=== PATIENT | female | born 1945 | race Caucasian/White ===

== ENCOUNTER 2018-07-30 13:34 | Inpatient (IN) | payer OTHER ==
[~2018-07-30] VITALS: Ht 157.5 cm; Wt 65.8 kg
[2018-07-30 13:39] VITALS: BP_SYST 151
[2018-07-30] MEDS ORDERED: NACL 0.9% 1,000 ML IV ONE (13:51)
[2018-07-30] MEDS ORDERED: ONDANSETRON HCL 4 MG/2 ML VIAL IVP ONE (14:00)
[2018-07-30 14:42] LABS: ANION GAP 6 (5-15); CALCIUM 10.4 mg/dL (8.4-11.0); CHLORIDE 95 mmol/L (98-107); CREATININE 0.88 mg/dL (0.55-1.30); GLUCOSE 204 mg/dL (70-99); POTASSIUM 4.5 mmol/L (3.5-5.1); SODIUM SERUM 133 mmol/L (136-145); UREA NITROGEN, BLOOD 17 mg/dL (8-21)
[2018-07-30 14:45] LABS: PROTHROMBIN TIME 10.4 SECS (9.5-12.5)
[2018-07-30 14:47] LABS: BILIRUBIN,URINE NEGATIVE (NEGATIVE); BLOOD, URINE 2+ (NEGATIVE); CLARITY/URINE CLEAR (CLEAR); COLOR,URINE YELLOW (YELLOW); GLUCOSE,URINE NEGATIVE (NEGATIVE); KETONES,URINE NEGATIVE (NEGATIVE); LEUKOCYTE ESTERASE ,URINE NEGATIVE (NEGATIVE); NITRITE, URINE NEGATIVE (NEGATIVE); PROTEIN URINE 1+ (NEGATIVE); UROBILINOGEN,URINE 0.2 (0.2-1.0)
[2018-07-30 14:48] LABS: ALANINE AMINOTRANSFERASE 60 U/L (12-78); ALBUMIN 3.2 g/dL (3.4-4.8); AMYLASE 56 U/L (0-100); ASPARTATE AMINOTRANSFERASE 22 U/L (10-37); LIPASE 208 U/L (73-393); TOTAL BILIRUBIN 0.5 mg/dL (0.0-1.0)
[2018-07-30 14:53] LABS: BACTERIA,URINE FEW /HPF (None Seen); WBC,URINE 0-3 /HPF (0-3)
[2018-07-30 14:53] LABS: BASOPHILS # (AUTO) 0.1 K/uL (0.0-0.2); BASOPHILS % (AUTO) 0.4 % (0.0-2.0); EOSINOPHILS # (AUTO) 0.3 K/uL (0.0-0.4); EOSINOPHILS % (AUTO) 2.3 % (0.0-4.0); HEMATOCRIT 50.6 % (36-48); HEMOGLOBIN 16.6 g/dL (12.0-16.0); LYMPHOCYTES # (AUTO) 2.5 K/uL (1.0-5.5); LYMPHOCYTES % (AUTO) 18.5 % (20.5-51.5); MEAN CORPUSCULAR HEMOGLOBIN 29 pg (27-31); MEAN CORPUSCULAR HGB CONC 33 % (32-36); MEAN CORPUSCULAR VOLUME 89 fL (79.0-98.0); MONOCYTES # (AUTO) 0.9 K/uL (0.0-1.0); MONOCYTES % (AUTO) 6.6 % (1.7-9.3); NEUTROPHILS # (AUTO) 9.7 K/uL (1.8-7.7); NEUTROPHILS % (AUTO) 72.2 % (40.0-70.0); PLATELET COUNT (AUTO) 563 K/uL (130-430); RED BLOOD CELL COUNT(AUTO) 5.67 MIL/uL (4.2-6.2); RED CELL DISTRIBUTION WIDTH 14.3 % (9.0-15.0); WHITE BLOOD COUNT (AUTO) 13.5 K/uL (4.8-10.8)
[2018-07-30] MEDS ORDERED: IOHEXOL 100 ML IV ONE (15:57)
[2018-07-30] MEDS ORDERED: KCL 20 mEq in D5/0.45NS 1000mL 1,000 ML IV SCH (18:45)
[2018-07-30] MEDS ORDERED: ESOM40CA PO (18:50)
[2018-07-30] MEDS ORDERED: METF1000 PO (18:50)
[2018-07-30] MEDS ORDERED: DULO20CA PO (18:50)
[2018-07-30] MEDS ORDERED: NEU300 PO (18:50)
[2018-07-30] MEDS ORDERED: ASPI-862 PO (18:58)
[2018-07-30] MEDS ORDERED: NOR10 PO (18:58)
[2018-07-30] MEDS ORDERED: LACT10SO7 PO (18:58)
[2018-07-30] MEDS ORDERED: ASCO500T20 PO (18:58)
[2018-07-30] MEDS ORDERED: POTA10TA15 PO (18:58)
[2018-07-30] MEDS ORDERED: FOLI-43 PO (18:58)
[2018-07-30] MEDS ORDERED: CALC117719 PO (18:58)
[2018-07-30] MEDS ORDERED: FURO-150 PO (18:58)
[2018-07-30] MEDS ORDERED: BENA40TA65 PO (18:58)
[2018-07-30] MEDS ORDERED: GLIM1TAB PO (18:58)
[2018-07-30] MEDS ORDERED: MULT-976 PO (18:58)
[2018-07-30] MEDS ORDERED: LIP40 PO (18:58)
[2018-07-30] MEDS ORDERED: BEN50 PO (18:58)
[2018-07-30] MEDS ORDERED: METO50TA7 PO (18:58)
[2018-07-30 19:09] VITALS: BP_SYST 138
[2018-07-30] MEDS: KCL 20 mEq in 0.45% NS 1000 mL 1,000 ML IV SCH (20:10)
[2018-07-30] MEDS: DULoxetine HCL 20 MG CAPSULE.DR PO SCH (21:00)
[2018-07-30] MEDS: GABAPENTIN 300 MG CAPSULE PO SCH (22:03)
[2018-07-30] MEDS: METOPROLOL SUCCINATE 50 MG TAB.SR.24H (TOPROL XL) PO SCH (22:04)
[2018-07-30] MEDS: ATORVASTATIN 20 MG TABLET PO SCH (22:04)
[2018-07-30] MEDS: INSULIN REGULAR, HUMAN 100 UNITS/ML, 10 ML VIAL (novoLIN R) SUBCUT PRN (22:10)
[2018-07-31 00:34] VITALS: BP_SYST 141
[2018-07-31] MEDS: INSULIN REGULAR, HUMAN 100 UNITS/ML, 10 ML VIAL (novoLIN R) SUBCUT PRN ×2 (06:00→11:33)
[2018-07-31] MEDS: MULTIVITAMINS TAB 1 TABLET PO SCH (08:29)
[2018-07-31] MEDS: ASCORBIC ACID 500 MG TABLET PO SCH (08:29)
[2018-07-31] MEDS: DULoxetine HCL 20 MG CAPSULE.DR PO SCH ×2 (08:29→20:42)
[2018-07-31] MEDS: GABAPENTIN 300 MG CAPSULE PO SCH ×2 (08:29→20:43)
[2018-07-31] MEDS: metFORMIN HCL 500 MG TABLET PO SCH ×2 (08:30→18:07)
[2018-07-31] MEDS: BENAZEPRIL HCL 20 MG TABLET (LOTENSIN) PO SCH (08:30)
[2018-07-31] MEDS: POTASSIUM CHLORIDE 10 MEQ TAB.PRT.SR PO SCH (08:30)
[2018-07-31] MEDS: ASPIRIN 325 MG TABLET (ECOTRIN) PO SCH (08:30)
[2018-07-31] MEDS: FOLIC ACID 1 MG TABLET PO SCH (08:31)
[2018-07-31] MEDS: amLODIPine BESYLATE 10 MG TABLET PO SCH (08:31)
[2018-07-31] MEDS: GLIMEPIRIDE 2 MG TABLET PO SCH (08:31)
[2018-07-31] MEDS: FUROSEMIDE 20 MG TABLET PO SCH (08:32)
[2018-07-31 08:34] VITALS: BP_SYST 108
[2018-07-31] MEDS: KCL 20 mEq in 0.45% NS 1000 mL 1,000 ML IV SCH ×2 (08:34→20:46)
[2018-07-31] MEDS: METOPROLOL SUCCINATE 50 MG TAB.SR.24H (TOPROL XL) PO SCH ×2 (08:34→20:43)
[2018-07-31 12:37] VITALS: BP_SYST 135
[2018-07-31 14:30] VITALS: BP_SYST 131
[2018-07-31 20:00] VITALS: BP_SYST 112
[2018-07-31] MEDS: ATORVASTATIN 20 MG TABLET PO SCH (20:43)
[2018-08-01 00:10] VITALS: BP_SYST 111
[2018-08-01] MEDS: DIPHENHYDRAMINE HCL 50 MG CAPSULE PO PRN ×2 (00:11→11:37)
[2018-08-01] MEDS: KCL 20 mEq in 0.45% NS 1000 mL 1,000 ML IV SCH (06:48)
[2018-08-01 08:00] VITALS: BP_SYST 116
[2018-08-01] MEDS: ASPIRIN 325 MG TABLET (ECOTRIN) PO SCH (08:44)
[2018-08-01] MEDS: DULoxetine HCL 20 MG CAPSULE.DR PO SCH ×2 (08:44→20:50)
[2018-08-01] MEDS: metFORMIN HCL 500 MG TABLET PO SCH ×2 (08:44→17:11)
[2018-08-01] MEDS: GABAPENTIN 300 MG CAPSULE PO SCH ×2 (08:45→20:50)
[2018-08-01] MEDS: MULTIVITAMINS TAB 1 TABLET PO SCH (08:45)
[2018-08-01] MEDS: POTASSIUM CHLORIDE 10 MEQ TAB.PRT.SR PO SCH (08:45)
[2018-08-01] MEDS: FUROSEMIDE 20 MG TABLET PO SCH (08:46)
[2018-08-01] MEDS: BENAZEPRIL HCL 20 MG TABLET (LOTENSIN) PO SCH (08:46)
[2018-08-01] MEDS: ASCORBIC ACID 500 MG TABLET PO SCH (08:46)
[2018-08-01] MEDS: FOLIC ACID 1 MG TABLET PO SCH (08:47)
[2018-08-01] MEDS: GLIMEPIRIDE 2 MG TABLET PO SCH (08:47)
[2018-08-01] MEDS: METOPROLOL SUCCINATE 50 MG TAB.SR.24H (TOPROL XL) PO SCH ×2 (08:48→20:50)
[2018-08-01] MEDS: amLODIPine BESYLATE 10 MG TABLET PO SCH (08:48)
[2018-08-01] MEDS: INSULIN REGULAR, HUMAN 100 UNITS/ML, 10 ML VIAL (novoLIN R) SUBCUT PRN (11:33)
[2018-08-01 11:36] VITALS: BP_SYST 128
[2018-08-01 15:30] VITALS: BP_SYST 115
[2018-08-01 19:15] VITALS: BP_SYST 105
[2018-08-01] MEDS: ATORVASTATIN 20 MG TABLET PO SCH (20:50)
[2018-08-02 00:33] VITALS: BP_SYST 126
[2018-08-02] MEDS: KCL 20 mEq in 0.45% NS 1000 mL 1,000 ML IV SCH ×2 (00:39→14:09)
[2018-08-02 08:00] VITALS: BP_SYST 125
[2018-08-02 08:33] LABS: RED BLOOD CELL COUNT(AUTO) 4.86 MIL/uL (4.2-6.2); WHITE BLOOD COUNT (AUTO) 10.5 K/uL (4.8-10.8)
[2018-08-02 08:34] LABS: EOSINOPHILS % (AUTO) 5.6 % (0.0-4.0); HEMATOCRIT 44.1 % (36-48); HEMOGLOBIN 14.6 g/dL (12.0-16.0); LYMPHOCYTES % (AUTO) 16.8 % (20.5-51.5); MEAN CORPUSCULAR HEMOGLOBIN 30 pg (27-31); MEAN CORPUSCULAR HGB CONC 33 % (32-36); MEAN CORPUSCULAR VOLUME 90 fL (79.0-98.0); MONOCYTES % (AUTO) 8.5 % (1.7-9.3); NEUTROPHILS % (AUTO) 68.2 % (40.0-70.0); PLATELET COUNT (AUTO) 448 K/uL (130-430); RED CELL DISTRIBUTION WIDTH 14.9 % (9.0-15.0)
[2018-08-02 08:35] LABS: BASOPHILS # (AUTO) 0.1 K/uL (0.0-0.2); BASOPHILS % (AUTO) 0.9 % (0.0-2.0); EOSINOPHILS # (AUTO) 0.6 K/uL (0.0-0.4); LYMPHOCYTES # (AUTO) 1.8 K/uL (1.0-5.5); MONOCYTES # (AUTO) 0.9 K/uL (0.0-1.0); NEUTROPHILS # (AUTO) 7.1 K/uL (1.8-7.7)
[2018-08-02 08:53] LABS: ALANINE AMINOTRANSFERASE 46 U/L (12-78); ALBUMIN 2.6 g/dL (3.4-4.8); ANION GAP 10 (5-15); ASPARTATE AMINOTRANSFERASE 26 U/L (10-37); CALCIUM 9.1 mg/dL (8.4-11.0); CHLORIDE 102 mmol/L (98-107); CREATININE 0.77 mg/dL (0.55-1.30); GLUCOSE 144 mg/dL (70-99); POTASSIUM 4.4 mmol/L (3.5-5.1); SODIUM SERUM 136 mmol/L (136-145); TOTAL BILIRUBIN 0.5 mg/dL (0.0-1.0); UREA NITROGEN, BLOOD 18 mg/dL (8-21)
[2018-08-02] MEDS: BENAZEPRIL HCL 20 MG TABLET (LOTENSIN) PO SCH (09:18)
[2018-08-02] MEDS: GABAPENTIN 300 MG CAPSULE PO SCH ×2 (09:18→20:37)
[2018-08-02] MEDS: metFORMIN HCL 500 MG TABLET PO SCH ×2 (09:18→17:29)
[2018-08-02] MEDS: METOPROLOL SUCCINATE 50 MG TAB.SR.24H (TOPROL XL) PO SCH ×2 (09:19→20:46)
[2018-08-02] MEDS: GLIMEPIRIDE 2 MG TABLET PO SCH (09:19)
[2018-08-02] MEDS: amLODIPine BESYLATE 10 MG TABLET PO SCH (09:20)
[2018-08-02] MEDS: ASPIRIN 325 MG TABLET (ECOTRIN) PO SCH (09:20)
[2018-08-02] MEDS: POTASSIUM CHLORIDE 10 MEQ TAB.PRT.SR PO SCH (09:21)
[2018-08-02] MEDS: MULTIVITAMINS TAB 1 TABLET PO SCH (09:21)
[2018-08-02] MEDS: ASCORBIC ACID 500 MG TABLET PO SCH (09:21)
[2018-08-02] MEDS: FOLIC ACID 1 MG TABLET PO SCH (09:21)
[2018-08-02] MEDS: FUROSEMIDE 20 MG TABLET PO SCH (09:22)
[2018-08-02] MEDS: DULoxetine HCL 20 MG CAPSULE.DR PO SCH ×2 (09:22→20:37)
[2018-08-02 11:29] VITALS: BP_SYST 150
[2018-08-02] MEDS: INSULIN REGULAR, HUMAN 100 UNITS/ML, 10 ML VIAL (novoLIN R) SUBCUT PRN (11:55)
[2018-08-02 15:18] VITALS: BP_SYST 131
[2018-08-02] MEDS: ACETAMINOPHEN 325 MG TABLET PO PRN (16:23)
[2018-08-02] MEDS: DIPHENHYDRAMINE HCL 50 MG CAPSULE PO PRN (18:24)
[2018-08-02 19:50] VITALS: BP_SYST 133
[2018-08-02] MEDS: FAMOTIDINE 20 MG TABLET PO SCH (20:37)
[2018-08-02] MEDS: ATORVASTATIN 20 MG TABLET PO SCH (20:38)
[2018-08-02] MEDS: ONDANSETRON HCL 4 MG/2 ML VIAL IVP PRN (20:53)
[2018-08-03] VITALS: BP_SYST 125
[2018-08-03] MEDS: KCL 20 mEq in 0.45% NS 1000 mL 1,000 ML IV SCH ×2 (03:10→17:50)
[2018-08-03] MEDS: ONDANSETRON HCL 4 MG/2 ML VIAL IVP PRN ×2 (05:54→17:57)
[2018-08-03 08:00] VITALS: BP_SYST 126
[2018-08-03] MEDS: BENAZEPRIL HCL 20 MG TABLET (LOTENSIN) PO SCH (08:15)
[2018-08-03] MEDS: MULTIVITAMINS TAB 1 TABLET PO SCH (08:15)
[2018-08-03] MEDS: amLODIPine BESYLATE 10 MG TABLET PO SCH (08:15)
[2018-08-03] MEDS: DIPHENHYDRAMINE HCL 50 MG CAPSULE PO PRN (08:15)
[2018-08-03] MEDS: FAMOTIDINE 20 MG TABLET PO SCH ×2 (08:16→22:35)
[2018-08-03] MEDS: FOLIC ACID 1 MG TABLET PO SCH (08:16)
[2018-08-03] MEDS: METOPROLOL SUCCINATE 50 MG TAB.SR.24H (TOPROL XL) PO SCH ×2 (08:16→22:39)
[2018-08-03] MEDS: metFORMIN HCL 500 MG TABLET PO SCH ×2 (08:16→17:51)
[2018-08-03] MEDS: POTASSIUM CHLORIDE 10 MEQ TAB.PRT.SR PO SCH (08:16)
[2018-08-03] MEDS: FUROSEMIDE 20 MG TABLET PO SCH (08:16)
[2018-08-03] MEDS: GABAPENTIN 300 MG CAPSULE PO SCH ×2 (08:16→22:34)
[2018-08-03] MEDS: DULoxetine HCL 20 MG CAPSULE.DR PO SCH ×2 (08:17→22:35)
[2018-08-03] MEDS: GLIMEPIRIDE 2 MG TABLET PO SCH (08:17)
[2018-08-03] MEDS: ASPIRIN 325 MG TABLET (ECOTRIN) PO SCH (08:17)
[2018-08-03] MEDS: ASCORBIC ACID 500 MG TABLET PO SCH (08:17)
[2018-08-03 12:06] VITALS: BP_SYST 108
[2018-08-03 16:30] VITALS: BP_SYST 110
[2018-08-03] MEDS: ACETAMINOPHEN 325 MG TABLET PO PRN (17:51)
[2018-08-03 19:46] VITALS: BP_SYST 113
[2018-08-03] MEDS: ATORVASTATIN 20 MG TABLET PO SCH (22:35)
[2018-08-04] VITALS: BP_SYST 117
[2018-08-04] MEDS: DIPHENHYDRAMINE HCL 50 MG CAPSULE PO PRN ×2 (05:00→11:05)
[2018-08-04] MEDS: KCL 20 mEq in 0.45% NS 1000 mL 1,000 ML IV SCH ×2 (05:00→17:59)
[2018-08-04] MEDS: INSULIN REGULAR, HUMAN 100 UNITS/ML, 10 ML VIAL (novoLIN R) SUBCUT PRN ×2 (06:28→11:43)
[2018-08-04 08:00] VITALS: BP_SYST 125
[2018-08-04] MEDS: metFORMIN HCL 500 MG TABLET PO SCH ×2 (09:38→17:59)
[2018-08-04] MEDS: DULoxetine HCL 20 MG CAPSULE.DR PO SCH ×2 (09:38→21:42)
[2018-08-04] MEDS: POTASSIUM CHLORIDE 10 MEQ TAB.PRT.SR PO SCH (09:38)
[2018-08-04] MEDS: FOLIC ACID 1 MG TABLET PO SCH (09:39)
[2018-08-04] MEDS: GLIMEPIRIDE 2 MG TABLET PO SCH (09:39)
[2018-08-04] MEDS: ASCORBIC ACID 500 MG TABLET PO SCH (09:39)
[2018-08-04] MEDS: GABAPENTIN 300 MG CAPSULE PO SCH ×2 (09:39→21:40)
[2018-08-04] MEDS: FAMOTIDINE 20 MG TABLET PO SCH ×2 (09:39→21:40)
[2018-08-04] MEDS: MULTIVITAMINS TAB 1 TABLET PO SCH (09:40)
[2018-08-04] MEDS: ASPIRIN 325 MG TABLET (ECOTRIN) PO SCH (09:40)
[2018-08-04] MEDS: amLODIPine BESYLATE 10 MG TABLET PO SCH (09:55)
[2018-08-04] MEDS: BENAZEPRIL HCL 20 MG TABLET (LOTENSIN) PO SCH (09:55)
[2018-08-04] MEDS: FUROSEMIDE 20 MG TABLET PO SCH (09:56)
[2018-08-04] MEDS: METOPROLOL SUCCINATE 50 MG TAB.SR.24H (TOPROL XL) PO SCH ×2 (09:56→21:40)
[2018-08-04] MEDS: ONDANSETRON HCL 4 MG/2 ML VIAL IVP PRN (10:53)
[2018-08-04 12:35] VITALS: BP_SYST 105
[2018-08-04] MEDS: ACETAMINOPHEN 325 MG TABLET PO PRN (15:41)
[2018-08-04 16:48] VITALS: BP_SYST 113
[2018-08-04 20:26] VITALS: BP_SYST 114
[2018-08-04] MEDS: ATORVASTATIN 20 MG TABLET PO SCH (21:40)
[2018-08-05 00:50] VITALS: BP_SYST 116
[2018-08-05 08:00] VITALS: BP_SYST 107
[2018-08-05] MEDS: METOPROLOL SUCCINATE 50 MG TAB.SR.24H (TOPROL XL) PO SCH ×2 (09:00→22:30)
[2018-08-05] MEDS: DULoxetine HCL 20 MG CAPSULE.DR PO SCH ×2 (09:00→21:00)
[2018-08-05] MEDS: BENAZEPRIL HCL 20 MG TABLET (LOTENSIN) PO SCH (09:00)
[2018-08-05] MEDS: amLODIPine BESYLATE 10 MG TABLET PO SCH (09:00)
[2018-08-05] MEDS: ASPIRIN 325 MG TABLET (ECOTRIN) PO SCH (09:00)
[2018-08-05] MEDS: metFORMIN HCL 500 MG TABLET PO SCH ×2 (11:19→17:47)
[2018-08-05] MEDS: ASCORBIC ACID 500 MG TABLET PO SCH (11:19)
[2018-08-05] MEDS: GABAPENTIN 300 MG CAPSULE PO SCH ×2 (11:19→22:29)
[2018-08-05] MEDS: MULTIVITAMINS TAB 1 TABLET PO SCH (11:20)
[2018-08-05] MEDS: FAMOTIDINE 20 MG TABLET PO SCH ×2 (11:21→22:30)
[2018-08-05] MEDS: POTASSIUM CHLORIDE 10 MEQ TAB.PRT.SR PO SCH (11:21)
[2018-08-05] MEDS: FOLIC ACID 1 MG TABLET PO SCH (11:21)
[2018-08-05] MEDS: GLIMEPIRIDE 2 MG TABLET PO SCH (11:21)
[2018-08-05] MEDS: FUROSEMIDE 20 MG TABLET PO SCH (11:22)
[2018-08-05 12:40] VITALS: BP_SYST 106
[2018-08-05] MEDS: ACETAMINOPHEN 325 MG TABLET PO PRN (15:37)
[2018-08-05] MEDS: KCL 20 mEq in 0.45% NS 1000 mL 1,000 ML IV SCH (15:37)
[2018-08-05 16:08] VITALS: BP_SYST 116
[2018-08-05 21:00] VITALS: BP_SYST 114
[2018-08-05] MEDS: DIPHENHYDRAMINE HCL 50 MG CAPSULE PO PRN (22:29)
[2018-08-05] MEDS: ATORVASTATIN 20 MG TABLET PO SCH (22:30)
[2018-08-06 00:50] VITALS: BP_SYST 120
[2018-08-06 08:00] VITALS: BP_SYST 110
[2018-08-06] MEDS: ONDANSETRON HCL 4 MG/2 ML VIAL IVP PRN (08:46)
[2018-08-06] MEDS: GABAPENTIN 300 MG CAPSULE PO SCH ×2 (09:01→20:55)
[2018-08-06] MEDS: FUROSEMIDE 20 MG TABLET PO SCH (09:02)
[2018-08-06] MEDS: METOPROLOL SUCCINATE 50 MG TAB.SR.24H (TOPROL XL) PO SCH ×2 (09:02→20:55)
[2018-08-06] MEDS: FAMOTIDINE 20 MG TABLET PO SCH ×2 (09:03→20:55)
[2018-08-06] MEDS: metFORMIN HCL 500 MG TABLET PO SCH ×2 (09:03→17:47)
[2018-08-06] MEDS: FOLIC ACID 1 MG TABLET PO SCH (09:03)
[2018-08-06] MEDS: BENAZEPRIL HCL 20 MG TABLET (LOTENSIN) PO SCH (09:04)
[2018-08-06] MEDS: amLODIPine BESYLATE 10 MG TABLET PO SCH (09:04)
[2018-08-06] MEDS: MULTIVITAMINS TAB 1 TABLET PO SCH (09:05)
[2018-08-06] MEDS: ASPIRIN 325 MG TABLET (ECOTRIN) PO SCH (09:05)
[2018-08-06] MEDS: ASCORBIC ACID 500 MG TABLET PO SCH (09:05)
[2018-08-06] MEDS: DULoxetine HCL 20 MG CAPSULE.DR PO SCH ×2 (09:05→20:56)
[2018-08-06] MEDS: POTASSIUM CHLORIDE 10 MEQ TAB.PRT.SR PO SCH (09:05)
[2018-08-06] MEDS: ACETAMINOPHEN 325 MG TABLET PO PRN ×2 (09:12→16:06)
[2018-08-06] MEDS: GLIMEPIRIDE 2 MG TABLET PO SCH (09:13)
[2018-08-06 12:02] VITALS: BP_SYST 117
[2018-08-06 16:02] VITALS: BP_SYST 112
[2018-08-06] MEDS: INSULIN REGULAR, HUMAN 100 UNITS/ML, 10 ML VIAL (novoLIN R) SUBCUT PRN (17:52)
[2018-08-06 20:00] VITALS: BP_SYST 116
[2018-08-06] MEDS: KCL 20 mEq in 0.45% NS 1000 mL 1,000 ML IV SCH (20:54)
[2018-08-06] MEDS: ATORVASTATIN 20 MG TABLET PO SCH (20:55)
[2018-08-07 01:26] VITALS: BP_SYST 100
[2018-08-07] MEDS: ACETAMINOPHEN 325 MG TABLET PO PRN ×2 (05:48→17:06)
[2018-08-07 08:00] VITALS: BP_SYST 142
[2018-08-07] MEDS: ASPIRIN 325 MG TABLET (ECOTRIN) PO SCH (09:59)
[2018-08-07] MEDS: GLIMEPIRIDE 2 MG TABLET PO SCH (09:59)
[2018-08-07] MEDS: FAMOTIDINE 20 MG TABLET PO SCH ×2 (09:59→20:22)
[2018-08-07] MEDS: ASCORBIC ACID 500 MG TABLET PO SCH (09:59)
[2018-08-07] MEDS: POTASSIUM CHLORIDE 10 MEQ TAB.PRT.SR PO SCH (09:59)
[2018-08-07] MEDS: MULTIVITAMINS TAB 1 TABLET PO SCH (09:59)
[2018-08-07] MEDS: FOLIC ACID 1 MG TABLET PO SCH (09:59)
[2018-08-07] MEDS: GABAPENTIN 300 MG CAPSULE PO SCH ×2 (09:59→20:22)
[2018-08-07] MEDS: metFORMIN HCL 500 MG TABLET PO SCH ×2 (10:00→17:06)
[2018-08-07] MEDS: FUROSEMIDE 20 MG TABLET PO SCH (10:16)
[2018-08-07] MEDS: amLODIPine BESYLATE 10 MG TABLET PO SCH (10:16)
[2018-08-07] MEDS: BENAZEPRIL HCL 20 MG TABLET (LOTENSIN) PO SCH (10:17)
[2018-08-07] MEDS: KCL 20 mEq in 0.45% NS 1000 mL 1,000 ML IV SCH (10:18)
[2018-08-07] MEDS: METOPROLOL SUCCINATE 50 MG TAB.SR.24H (TOPROL XL) PO SCH ×2 (10:18→20:23)
[2018-08-07] MEDS: DULoxetine HCL 20 MG CAPSULE.DR PO SCH ×2 (11:53→20:22)
[2018-08-07] MEDS: INSULIN REGULAR, HUMAN 100 UNITS/ML, 10 ML VIAL (novoLIN R) SUBCUT PRN ×2 (11:58→20:37)
[2018-08-07 12:11] VITALS: BP_SYST 125; BP_SYST 99
[2018-08-07 16:02] VITALS: BP_SYST 116
[2018-08-07 19:30] VITALS: BP_SYST 125
[2018-08-07 19:33] VITALS: BP_SYST 116
[2018-08-07] MEDS: ATORVASTATIN 20 MG TABLET PO SCH (20:22)
== END 2018-08-07 20:40 | DRG 204 ==
LOC: SED 13:34 → SMU 18:38
PROVIDERS: ADMIT Family Medicine; ATTEND Family Medicine
DX: R91.8 Other nonspecific abnormal finding of lung field (principal); E11.9 Type 2 diabetes mellitus without complications; I10 Essential (primary) hypertension; K21.9 Gastro-esophageal reflux disease without esophagitis; F32.9 Major depressive disorder, single episode, unspecified; Z85.07 Personal history of malignant neoplasm of pancreas; Z92.21 Personal history of antineoplastic chemotherapy; Z90.49 Acquired absence of other specified parts of digestive tract; Z79.899 Other long term (current) drug therapy; Z88.5 Allergy status to narcotic agent; Z88.8 Allergy status to other drugs, medicaments and biological substances; Z91.041 Radiographic dye allergy status
CPT/HCPCS: 36415; 71250-TC; 80053; 81000-TC; 82150-TC; 82962; 83690-TC; 85025; 85610-TC; 86301; 87081; 96361; 96374; 99285; J1815; J2405; J3480; Q0163; Q9967